=== PATIENT | male | born 1970 | race Caucasian/White ===

== ENCOUNTER 2020-02-22 13:27 | Emergency (ER) | payer OTHER ==
[~2020-02-22] VITALS: Ht 167.6 cm; Wt 86.6 kg
[2020-02-22] MEDS ORDERED: PRILOSEC OTC20 MG (13:45)
[2020-02-22] MEDS ORDERED: PROBIOTIC1 EAC2 (13:46)
== END 2020-02-22 21:07 | disposition home or self-care (01) ==
LOC: ER 13:27
DX: K80.80 Other cholelithiasis without obstruction (principal); Z03.818 Encounter for observation for suspected exposure to other biological agents ruled out; R10.11 Right upper quadrant pain

== ENCOUNTER 2020-03-14 06:09 | Day surgery (SDC) | payer OTHER ==
[~2020-03-14 06:09] MED LIST: PRILOSEC OTC20 MG; PROBIOTIC1 EAC2
[2020-03-14] MEDS ORDERED: PERCOCET 5-3251 EACH PO (15:59)
[2020-03-14] MEDS ORDERED: NEURONTIN600 M1 PO (15:59)
== END 2020-03-14 20:50 | disposition home or self-care (01) ==
LOC: CIR.AMB 06:09
PROVIDERS: ATTEND Surgery
DX: K80.10 Calculus of gallbladder with chronic cholecystitis without obstruction (principal); Z20.828 Contact with and (suspected) exposure to other viral communicable diseases

== ENCOUNTER 2021-07-18 11:10 | Outpatient (CLI) | payer OTHER ==
[~2021-07-18 11:10] MED LIST changes: +NEURONTIN600 M1 PO; +PERCOCET 5-3251 EACH PO
== END 2021-07-18 11:15 | disposition home or self-care (01) ==
LOC: LAB 11:10
PROVIDERS: ATTEND Internal Medicine
DX: Z20.828 Contact with and (suspected) exposure to other viral communicable diseases (principal)